=== PATIENT | male | born 1960 | race Two or more races ===

== ENCOUNTER 2022-03-29 19:50 | Emergency (ER) | payer OTHER ==
[~2022-03-29] VITALS: Ht 177.8 cm; Wt 79.4 kg
[2022-03-29] MEDS ORDERED: ACETAMINOPHEN 325 MG TAB PO ONE (20:30)
[2022-03-29] MEDS ORDERED: PIPERACILLIN-TAZOB 3.375GM 100 ML IV ONE (20:30)
[2022-03-29] MEDS ORDERED: VANCOMYCIN 1GM/250ML 250 ML IV ONE (20:30)
[2022-03-29] MEDS ORDERED: SODIUM CHLORIDE 0.9% 3,000 ML IV ONE (20:30)
[2022-03-29 21:02] LABS: Basophils # (auto) 0 10 ^3/uL (0-0.2); Basophils % (auto) 0.1 % (0.0-2.0); Eosinophils # (auto) 0 10 ^3/uL (0-0.8); Hematocrit 36.4 % (41.0-53.0); Hemoglobin 11.9 g/dL (13.5-17.5); Lymphocytes # (auto) 0.5 10 ^3/uL (0.4-5.4); Lymphocytes % (auto) 2.8 % (10.0-50.0); Mean Corpuscular Hemoglobin 27.3 pg (28.0-32.0); Mean Corpuscular Hgb Conc. 32.8 g/dL (32.0-36.0); Mean Corpuscular Volume 83.3 fL (80.0-100.0); Monocytes % (auto) 11.4 % (0.0-12.0); Neutrophils # (auto) 15.1 10 ^3/uL (1.6-8.6); Neutrophils % (auto) 85.7 % (37.0-80.0); Red Blood Cells 4.37 10^6/uL (4.5-5.90); Red Cell Distribution Width 17.4 % (11.8-14.3); White Blood Cell 17.7 10^3/uL (4.4-10.8)
[2022-03-29] MEDS ORDERED: IOHEXOL 350 MG/ML 100ML IJ ONE (21:06)
[2022-03-29 21:20] LABS: Albumin 1.7 g/dL (3.4-5.0); BUN/Creatinine Ratio 35.1; Potassium 3.3 mmol/L (3.5-5.1)
[2022-03-29 21:23] LABS: Bilirubin, Total 1.6 mg/dL (0.2-1.0); Total Protein 6.4 g/dL (6.4-8.2)
[2022-03-29] MEDS ORDERED: SODIUM CHLORIDE 0.9% 1,000 ML IV SCH (22:00)
[2022-03-29] MEDS ORDERED: ONDANSETRON HCL 4 MG/2 ML VIAL IV PRN (22:00)
[2022-03-29] MEDS ORDERED: ACETAMINOPHEN 325 MG TAB PO PRN (22:00)
[2022-03-29] MEDS ORDERED: DOCUSATE SOD 100 MG CAP PO PRN (22:00)
[2022-03-29] MEDS ORDERED: FAMOTIDINE (10MG/ML) 2ML VL IV SCH (22:00)
[2022-03-29] MEDS ORDERED: HYDROcodone-ACET 5/325MG TAB PO PRN (22:00)
[2022-03-29] MEDS ORDERED: VANCOMYCIN PER PHARMACY 0 MG IV SCH (22:00)
[2022-03-29] MEDS ORDERED: NITROGLYCERIN 0.4 MG SL TAB SL PRN (23:30)
[2022-03-29] MEDS ORDERED: MORPHINE SULFATE INJ 2 MG/ml SYRG IV PRN (23:30)
[2022-03-29] MEDS ORDERED: DEXTROSE (50%) 50ML SYRG IV PRN (23:30)
[2022-03-30] MEDS ORDERED: ALBUMIN 25% 100 ML IV ONE (00:30)
[2022-03-30] MEDS ORDERED: POTASSIUM CHL 20MEQ/100ML 100 ML IV SCH (00:30)
[2022-03-30 00:40] VITALS: BP 103/64
[2022-03-30] MEDS ORDERED: PIPERACILLIN-TAZOB 2.25GM 50 ML IV SCH (04:00)
[2022-03-30] MEDS ORDERED: InsuLIN REG 1unit/0.01ml Soln (100units/ml) SC SCH ×2 (07:00→22:00)
[2022-03-30] MEDS ORDERED: ACCU-CHEK COMFORT CURVE STRIP VI SCH (07:00)
[2022-03-30] MEDS ORDERED: ENOXAPARIN SOD 30 MG/0.3 ML SYRINGE SC SCH (10:00)
== END 2022-03-30 01:04 | disposition short-term general hospital (02) ==
LOC: EDBD 19:50 → ER 19:50 → TELE 23:24 → UNDOADMIN 23:24 → UNDODISIN 03-30 01:00 → ER 03-30 01:04 → TELE 03-30 01:06
DX: A41.9 Sepsis, unspecified organism (principal); L03.116 Cellulitis of left lower limb; E11.9 Type 2 diabetes mellitus without complications; I70.90 Unspecified atherosclerosis; I10 Essential (primary) hypertension; Z20.822 Contact with and (suspected) exposure to COVID-19; Z89.612 Acquired absence of left leg above knee
CPT/HCPCS: 36415; 71045; 73706; 80053; 83605; 84484; 85025; 87040; 87426; 93005; 96365; 96366; 96367; 99291; J2543; J3370; J7030; Q9967; G0378